=== PATIENT | female | born 1940 | race Caucasian/White ===

== ENCOUNTER → 2022-04-29 | Outpatient (CLI) | payer MEDICARE ==
[~2022-04-29] MED LIST: Cipro500 MG PO
[2022-04-29 13:40] LABS: BASOPHILS ABSOLUTE AUTO 0.08 K/mm3 (0.00-0.23); BASOPHILS PERCENT AUTO 1 % (0-2); EOSINOPHILS ABSOLUTE AUTO 0.14 K/mm3 (0.00-0.68); EOSINOPHILS PERCENT AUTO 2 % (0-6); Hematocrit 36.4 % (33.0-51.0); Hemoglobin 12.3 g/dL (11.5-16.0); IMMATURE GRAN ABSOLUTE AUTO 0.04 K/mm3 (0.00-0.10); IMMATURE GRAN PERCENT AUTO 0 % (0-1); LYMPHOCYTES PERCENT AUTO 8 % (21-46); MONOCYTES ABSOLUTE AUTO 0.99 K/mm3 (0.16-1.47); MONOCYTES PERCENT AUTO 11 % (4-13); Mean Corpuscular HGB 30.1 pg (26.0-34.0); Mean Corpuscular HGB Conc 33.8 g/dL (31.5-36.5); Mean Corpuscular Volume 89 fL (80-100); Mean Platelet Volume 8.9 fL (9.1-12.4); NEUTROPHILS ABSOLUTE AUTO 7.01 K/mm3 (1.96-9.15); NEUTROPHILS PERCENT AUTO 78 % (41-73); Platelet Count 384 K/mm3 (150-400); RDW Coefficient Variation 12.6 % (11.7-14.2); Red Blood Cell Count 4.08 M/mm3 (3.80-5.20); White Blood Cell Count 8.96 K/mm3 (4.00-11.30)
[2022-04-29 13:49] LABS: Albumin, Blood 3.1 g/dL (3.4-5.0); Albumin/Globulin Ratio 0.7 (0.8-1.8); Bilirubin, Total 0.4 mg/dL (0.1-1.0); Bun/Creatinine Ratio 21.3 (12.0-20.0); Calcium, Blood 10.3 mg/dL (8.5-10.1); Creatinine, Blood 2.02 mg/dL (0.40-1.00); Globulin, Blood 4.4 g/dL (2.2-4.0); Potassium, Blood 4.2 mmol/L (3.5-5.5); Total Protein, Blood 7.5 g/dL (6.4-8.2)
== END | disposition home or self-care (01) ==
LOC: LAB SHORT 13:34
PROVIDERS: Family Medicine
DX: N39.0 Urinary tract infection, site not specified (principal); R10.9 Unspecified abdominal pain
CPT/HCPCS: 80053; 83690; 85025; 87086

== ENCOUNTER 2022-05-05 08:47 | Inpatient (IN) | payer MEDICARE ==
[~2022-05-05] VITALS: Ht 175.3 cm; Wt 54.4 kg
[2022-05-05 10:45] LABS: BASOPHILS ABSOLUTE AUTO 0.08 K/mm3 (0.00-0.23); BASOPHILS PERCENT AUTO 1 % (0-2); EOSINOPHILS ABSOLUTE AUTO 0.15 K/mm3 (0.00-0.68); EOSINOPHILS PERCENT AUTO 1 % (0-6); Hematocrit 36.2 % (33.0-51.0); Hemoglobin 12.1 g/dL (11.5-16.0); IMMATURE GRAN PERCENT AUTO 1 % (0-1); LYMPHOCYTES ABSOLUTE AUTO 0.69 K/mm3 (0.84-5.20); LYMPHOCYTES PERCENT AUTO 6 % (21-46); MONOCYTES ABSOLUTE AUTO 1.09 K/mm3 (0.16-1.47); MONOCYTES PERCENT AUTO 10 % (4-13); Mean Corpuscular HGB 29.7 pg (26.0-34.0); Mean Corpuscular HGB Conc 33.4 g/dL (31.5-36.5); Mean Corpuscular Volume 89 fL (80-100); Mean Platelet Volume 8.6 fL (9.1-12.4); NEUTROPHILS ABSOLUTE AUTO 9.36 K/mm3 (1.96-9.15); NEUTROPHILS PERCENT AUTO 82 % (41-73); Platelet Count 440 K/mm3 (150-400); RDW Coefficient Variation 12.3 % (11.7-14.2); Red Blood Cell Count 4.08 M/mm3 (3.80-5.20); White Blood Cell Count 11.47 K/mm3 (4.00-11.30)
[2022-05-05 10:59] LABS: International Normalized Ratio 1.04; Prothrombin Time Results 10.9 Sec (9.7-11.5)
[2022-05-05 11:01] LABS: Albumin, Blood 2.9 g/dL (3.4-5.0); Albumin/Globulin Ratio 0.6 (0.8-1.8); Bilirubin, Total 0.3 mg/dL (0.1-1.0); Bun/Creatinine Ratio 19.5 (12.0-20.0); Calcium, Blood 10.7 mg/dL (8.5-10.1); Creatinine, Blood 4.05 mg/dL (0.40-1.00); Globulin, Blood 4.7 g/dL (2.2-4.0); Potassium, Blood 5.4 mmol/L (3.5-5.5); Total Protein, Blood 7.6 g/dL (6.4-8.2)
[2022-05-05] MEDS ORDERED: Cipro500 MG PO (13:54)
[2022-05-05 16:37] LABS: Uric Acid, Blood 8.8 mg/dL (2.6-6.0)
[2022-05-05 18:16] LABS: Source, Urine Straight Cath
[2022-05-05 18:20] LABS: Appearance, Urine Clear (Clear); Bilirubin, Urine Neg (Neg); Blood, Urine 1+ (Neg); Color, Urine Yellow (P-Yellow); Glucose Qualitative, Urine Neg (Neg); Ketones, Urine Neg (Neg); Leukocyte Esterase, Urine 2+ (Neg); Nitrite, Urine Neg (Neg); Protein, Urine 1+ (Neg); Urobilinogen, Urine NORM (Normal)
[2022-05-05 18:21] LABS: Influenza A, PCR NEGATIVE (NEGATIVE); Influenza B, PCR NEGATIVE (NEGATIVE); Resp Syncytial Virus, PCR NEGATIVE (NEGATIVE); SARS-Cov-2 (COVID-19) PCR, MMC NEGATIVE (NEGATIVE)
[2022-05-05 18:41] LABS: Bacteria Few /hpf; Red Blood Cells, Urine 0-2 /hpf (0-2); Squamous Epithelial Cells Few /hpf (Few); Transitional Epithelial Cells Few /hpf (0-Rare)
--- NOTE | 2022-05-05 18:50 | NUR ---
PT ARRIVED TO THE MEDICAL FLOOR FROM THE ER VIA GURNEY. THE PT WAS ABLE TO TRANSFER TO THE BED WITH MINIMAL ASSISTANCE. THE PT APPEARS TO BE BREATHING EASILY ON RA AT THIS TIME. THE PT WAS ORIENTED TO THE ROOM LAYOUT AND [employer] SYSTEM. CALL LIGHT IN REACH
--- NOTE | 2022-05-05 23:37 | NUR ---
PAGED BUS AND TROLLEY DISPATCHER. PT STATES FENTANYL NOT EFFECTIVE, IT DULLED THE PAIN A LITTLE ONLY FOR A SHORT TIME. STATES THE DILAUDID GIVEN IN THE ER WORKED WAS BETTER FOR HER. PLACED HEATING PAD ON ABDOMEN. PAGED BUS AND TROLLEY DISPATCHER TO SWITCH FENTANYL TO THE DILAUDID. MD WANTED TO KEEP FENTENYL AND ONLY DO A X1 DOSE OF O.5MG DILAUDID FOR NOW
--- NOTE | 2022-05-06 04:12 | NUR ---
SHIFT SUMMARY NO OVERNIGHT CHANGES IN PT CONDITION. STILL ENDORSES ABDOMINAL PAIN, DILAUDID WORKED WELL FOR PAIN WITH THE HEATING PAD. NOTES PAIN STARTS AFTER DRINKING. IV FLUIDS CONTINUES. REPORTS DIFFICULTY SWALLOWING FOOD AND PILLS. SKIN INTACT. DENIES ANY SOB/CP. AMBULATING TO BATHROOM WITH STAND BY ASSIST, STEADY ON FEET. PT ABLE TO MAKE NEEDS KNOWN, CALL LIGHT IN REACH.
[2022-05-06 05:09] LABS: BASOPHILS ABSOLUTE AUTO 0.07 K/mm3 (0.00-0.23); BASOPHILS PERCENT AUTO 1 % (0-2); EOSINOPHILS ABSOLUTE AUTO 0.07 K/mm3 (0.00-0.68); EOSINOPHILS PERCENT AUTO 1 % (0-6); Hematocrit 32.8 % (33.0-51.0); Hemoglobin 11.1 g/dL (11.5-16.0); IMMATURE GRAN ABSOLUTE AUTO 0.12 K/mm3 (0.00-0.10); IMMATURE GRAN PERCENT AUTO 1 % (0-1); LYMPHOCYTES ABSOLUTE AUTO 0.65 K/mm3 (0.84-5.20); LYMPHOCYTES PERCENT AUTO 6 % (21-46); MONOCYTES ABSOLUTE AUTO 1.17 K/mm3 (0.16-1.47); MONOCYTES PERCENT AUTO 10 % (4-13); Mean Corpuscular HGB 30.1 pg (26.0-34.0); Mean Corpuscular HGB Conc 33.8 g/dL (31.5-36.5); Mean Corpuscular Volume 89 fL (80-100); Mean Platelet Volume 8.5 fL (9.1-12.4); NEUTROPHILS ABSOLUTE AUTO 9.17 K/mm3 (1.96-9.15); NEUTROPHILS PERCENT AUTO 82 % (41-73); Platelet Count 396 K/mm3 (150-400); RDW Coefficient Variation 12.3 % (11.7-14.2); RDW Standard Deviation 40.1 fL (35.1-46.3); Red Blood Cell Count 3.69 M/mm3 (3.80-5.20); White Blood Cell Count 11.25 K/mm3 (4.00-11.30)
[2022-05-06 05:40] LABS: Albumin, Blood 2.3 g/dL (3.4-5.0); Albumin/Globulin Ratio 0.6 (0.8-1.8); Bilirubin, Total 0.3 mg/dL (0.1-1.0); Bun/Creatinine Ratio 20.3 (12.0-20.0); Calcium, Blood 9.4 mg/dL (8.5-10.1); Creatinine, Blood 4.69 mg/dL (0.40-1.00); Globulin, Blood 3.8 g/dL (2.2-4.0); Potassium, Blood 5.7 mmol/L (3.5-5.5); Total Protein, Blood 6.1 g/dL (6.4-8.2)
--- NOTE | 2022-05-06 13:11 | NUR ---
Pt resting in bed and is A&OX4. Offered therapeutic listening as Pt reports living at home with a roommate. She reports having 4 dogs at home and room mate is caring for them while she is in the hospital. She reports having a son who lives in [facility]. Listened as Pt discusses her understanding of potential cancer. She reports not knowing if she will pursue treatment. She states it will depend on advancement of cancer and treatments available. Listened as she reports losing her daughter and her mother to cancer. She report both in their 50's. Continued therapeutic listening. Engaged in discussion regarding code status wishes. Educated on life sustaining treatment including risk factors and implications of CPR. Pt reports wishes are Full code for now. Provided Advanced Directive for Pt to consider completing. Ended visit to allow Pt to rest. Palliative Care will remain available.
[2022-05-06 13:45] LABS: Bun/Creatinine Ratio 18.6 (12.0-20.0); Calcium, Blood 9.5 mg/dL (8.5-10.1); Creatinine, Blood 5.1 mg/dL (0.40-1.00); Potassium, Blood 5.8 mmol/L (3.5-5.5)
--- NOTE | 2022-05-06 15:12 | NUR ---
05/06/22 1512 Gomez Smith History, Chart, Medications and Allergies reviewed before start of procedure.Bite Block PlacedMONITOR INTACT WITH CONTINUOUS PULSE OXIMETRY AND INTERMITTENT BP.
[2022-05-06 18:30] LABS: Bun/Creatinine Ratio 19.2 (12.0-20.0); Calcium, Blood 9.3 mg/dL (8.5-10.1); Creatinine, Blood 5.3 mg/dL (0.40-1.00)
--- NOTE | 2022-05-06 20:09 | NUR ---
END OF SHIFT SUMMARY: PATIENT REPORTED PAIN THROUGHOUT THE SHIFT RELATED TO ABDOMEN. PATIENT REPORTED INCREASED PAIN WITH PO INTAKE (LIQUIDS ONLY). PATIENT DENIED NAUSEA. PATIENT TOOK SMALL SIPS/BITES APPROPRIATE. PATIENT DISPLAYED SOME ANXIETY RELATED TO HER CURRENT SITUATION AND HER PAIN MANAGEMENT. PATIENT SEEMS TO STILL BE COMING TO TERMS WITH HER CURRENT DIAGNOSIS, MAKING STATEMENTS SUCH "WHEN I AM BACK TO NORMAL" AND "I CAN'T WAIT TO BE DONE WITH THIS". SHE IS ANXIOUS TO GET BACK HOME. PATIENT MET WITH PALLIATIVE CARE PRIOR TO EGD. PATIENT WORKED WITH PT. PATIENT REPORTED FATIGUE BY THE END OF THE SHIFT. PATIENT HAS A SON AND ROOMMATE THAT BOTH SEEM TO BE SUPPORTIVE OF THE PATIENT AND ABLE TO HELP WITH HER CARE.
[2022-05-06 20:27] LABS: Bun/Creatinine Ratio 17.6 (12.0-20.0); Creatinine, Blood 5.41 mg/dL (0.40-1.00); Potassium, Blood 5.3 mmol/L (3.5-5.5)
--- NOTE | 2022-05-07 04:32 | NUR ---
SHIFT SUMMARY: SHIFT SUMMARY: Pt A/Ox4 and call light appropriate. Pt had c/o abdominal pain, espeically after consuming liquids. Dilaudid PRN given per eMar. She denied SOB, nausea, numbness/tingiling. She has been NPO tonight as she has a potential biopsy today- when day nurse relayed this to night nurse it was stated "they may not do it but never cancelled the order so just in case take away liquids." Pt was ok with this and stated "i dont have much of an appetite to drink anyways." Will relay this info on to coming nurse so the procedure can be confirmed/denied. She has IVF infusing. Ambulates to the BR with 1 assist. Bladder scan was done to measure a post void residual- the amount was 10mL.
[2022-05-07 05:04] LABS: BASOPHILS ABSOLUTE AUTO 0.08 K/mm3 (0.00-0.23); BASOPHILS PERCENT AUTO 1 % (0-2); EOSINOPHILS ABSOLUTE AUTO 0.11 K/mm3 (0.00-0.68); EOSINOPHILS PERCENT AUTO 1 % (0-6); Hematocrit 27.8 % (33.0-51.0); Hemoglobin 9.4 g/dL (11.5-16.0); IMMATURE GRAN ABSOLUTE AUTO 0.12 K/mm3 (0.00-0.10); IMMATURE GRAN PERCENT AUTO 1 % (0-1); LYMPHOCYTES ABSOLUTE AUTO 0.67 K/mm3 (0.84-5.20); LYMPHOCYTES PERCENT AUTO 6 % (21-46); MONOCYTES ABSOLUTE AUTO 1.23 K/mm3 (0.16-1.47); MONOCYTES PERCENT AUTO 11 % (4-13); Mean Corpuscular HGB 29.7 pg (26.0-34.0); Mean Corpuscular HGB Conc 33.8 g/dL (31.5-36.5); Mean Corpuscular Volume 88 fL (80-100); Mean Platelet Volume 8.5 fL (9.1-12.4); NEUTROPHILS ABSOLUTE AUTO 8.68 K/mm3 (1.96-9.15); NEUTROPHILS PERCENT AUTO 80 % (41-73); Platelet Count 344 K/mm3 (150-400); RDW Coefficient Variation 12.3 % (11.7-14.2); RDW Standard Deviation 39.8 fL (35.1-46.3); Red Blood Cell Count 3.16 M/mm3 (3.80-5.20); White Blood Cell Count 10.89 K/mm3 (4.00-11.30)
[2022-05-07 05:23] LABS: Albumin, Blood 1.9 g/dL (3.4-5.0); Albumin/Globulin Ratio 0.5 (0.8-1.8); Bilirubin, Total 0.3 mg/dL (0.1-1.0); Bun/Creatinine Ratio 16.6 (12.0-20.0); Creatinine, Blood 5.85 mg/dL (0.40-1.00); Globulin, Blood 3.5 g/dL (2.2-4.0); Magnesium, Blood 2.5 mg/dL (1.6-2.4); Potassium, Blood 5.5 mmol/L (3.5-5.5); Total Protein, Blood 5.4 g/dL (6.4-8.2)
--- NOTE | 2022-05-07 11:35 | NUR ---
Spoke with Dr Alcantar this AM and discussed case. Pt resting in bed upon arrival. Just returned from biopsy procedure. Pt reports tissue sample had to be obtained from less than ideal area. Engaged in therapeutic discussion regarding goals of care. Discussed cancer treatment and the recommendation for renal stents with accepting facility in [place]. Pt reports being unsure of what to do and will like to call her son and include him in conversation. Pt video calls her son Jonah. Provided update and reviewed plan of care. Offered therapeutic listening and answered questions. Deferred some questions for physician to answer and dicussed. Continued supportive visit. Called and spoke with Dr Alcantar. Relayed request to contact son Jonah. Palliative Care will remain available.
--- NOTE | 2022-05-07 15:17 | NUR ---
Joint visit with Dr Alcantar and this PC RN. Pt resting in bed. Pt contacts her son and places him on video call. Dr Alcantar reviews plan of care, risks and benefits. Questions answered and supportive conversation continued. Pt and family agreeable with transfer to higher level of care. Palliative Care will remain available.
--- NOTE | 2022-05-07 17:02 | NUR ---
SHIFT SUMMARY: PT A&O X4, PLEASANT AND POSTIVE MINDSET. PT HAD MODERATE PAIN THROUGHOUT THE SHIFT. DR. HAYLEY SANTANA ORDERED DIALUDID 0.5MG IV Q3H SCHEDULED FOR PAIN MANAGEMENT. PT ABLE TO AMBULATE TO THE BATHROOM WITH SBA. PT HAD LITTLE TO NO URINE OUTPUT THROUGHOUT THE SHIFT. DR. HAYLEY SANTANA ORDERED BIOPSY. PT WILL BE TRANSFERED TO [facility], REPORT GIVEN TO RATNA SALES AND PT WILL BE IN ROOM 517. PT TRANSPORTATION SCHEDULED FOR PT. PT LEFT AC IV LEAKING AND DC'D. PT RIGHT IV AC FLUSHES AND PATENTED. PT IN BED WITH CALL LIGHT WITHIN REACH.
[2022-05-08 00:08] LABS: Bun/Creatinine Ratio 15.7 (12.0-20.0); Calcium, Blood 9.2 mg/dL (8.5-10.1); Creatinine, Blood 6.83 mg/dL (0.40-1.00); Potassium, Blood 5.2 mmol/L (3.5-5.5)
--- NOTE | 2022-05-08 03:53 | NUR ---
[facility] ARRIVED ON UNIT TO TRANSPORT PT TO CARE FLIGHT TO [place] AT 00:15.
[2022-05-11 12:51] LABS: Performing Lab SYMBIODX; Test Name PD-L1 22C3
== END 2022-05-08 00:16 | disposition short-term general hospital (02) | DRG 824 ==
LOC: ER 08:47 → ERHOLD 16:48 → MEDS 16:48
PROVIDERS: Family Medicine; Hospitalist; Internal Medicine; Internal Medicine Gastroenterology; Internal Medicine Hematology & Oncology; Physician Assistant; Student in an Organized Health Care Education/Training Program; ADMIT Internal Medicine
PROC: 3E02340 Introduction of Influenza Vaccine into Muscle, Percutaneous Approach (ICD-10-PCS; 2022-05-05)
PROC: 0DB58ZX Excision of Esophagus, Via Natural or Artificial Opening Endoscopic, Diagnostic (ICD-10-PCS; principal; 2022-05-06 14:30)
PROC: 07B23ZX Excision of Left Neck Lymphatic, Percutaneous Approach, Diagnostic (ICD-10-PCS; 2022-05-07)
PROC: BW4FZZZ Ultrasonography of Neck (ICD-10-PCS; 2022-05-07)
DX: C77.2 Secondary and unspecified malignant neoplasm of intra-abdominal lymph nodes (principal); C15.9 Malignant neoplasm of esophagus, unspecified; J90 Pleural effusion, not elsewhere classified; N17.9 Acute kidney failure, unspecified; N13.8 Other obstructive and reflux uropathy; Z68.1 Body mass index [BMI] 19.9 or less, adult; N13.30 Unspecified hydronephrosis; J98.11 Atelectasis; R13.10 Dysphagia, unspecified; E87.5 Hyperkalemia; R63.4 Abnormal weight loss; K59.00 Constipation, unspecified; F10.10 Alcohol abuse, uncomplicated; R74.01 Elevation of levels of liver transaminase levels; D75.839 Thrombocytosis, unspecified; D72.829 Elevated white blood cell count, unspecified; Z20.822 Contact with and (suspected) exposure to COVID-19; Z23 Encounter for immunization
CPT/HCPCS: 0241U; 36415; 38505; 71046; 71250; 74176; 76942; 80048; 80053; 81001; 82140; 82378; 82947; 83605; 83615; 83690; 83735; 84145; 84484; 84550; 85025; 85610; 86304; 88305; 88360; 90686; 93005; 93010; 96374; 96375; 97110; 97116; 97162; 99285-25; A9270; C9113; G0008; J1170; J1644; J1815; J2001; J2704; J3010; J7030; J7799